=== PATIENT | female | born 1935 | race Asian ===

== ENCOUNTER 2018-03-09 21:54 | Inpatient (IN) | payer MEDICARE, OTHER ==
[~2018-03-09] VITALS: Ht 165.1 cm; Wt 55.4 kg
[~2018-03-09 21:54] MED LIST: ADV250 IH; ALBU6.7H IH; ALBU8.5H3 IH; ASPI-556 PO; DONE5TAB5 PO; FENO48TA15 PO; FEXO180T PO; FISH1CAP49 PO; MOME17N NASAL; TOLT2CAP27 PO
[2018-03-09] MEDS ORDERED: THIA100T13 PO (22:33)
[2018-03-09] MEDS ORDERED: SODIUM CHLORIDE NG (22:33)
[2018-03-09] MEDS ORDERED: CALC-20 GT (22:33)
[2018-03-09] MEDS ORDERED: CETI-290 PO (22:33)
[2018-03-09] MEDS ORDERED: DONE10TA8 GT (22:33)
[2018-03-09] MEDS ORDERED: [UNRECOGNIZED DRUG - CODE] NG (22:33)
[2018-03-09] MEDS ORDERED: LEVO500 GT (22:33)
[2018-03-09] MEDS ORDERED: [UNRECOGNIZED DRUG - CODE] GT (22:33)
[2018-03-09 23:08] LABS: GLUCOSE,POINT OF CARE 124 MG/DL (70-110)
[2018-03-09] MEDS ORDERED: LORazepam 2 MG/ML VIAL IM ONE ×2 (23:15)
[2018-03-10 00:03] LABS: BASOPHILS % (AUTO) 0.9 % (0.0-2.0); EOSINOPHILS % (AUTO) 1.3 % (1.0-6.0); HEMATOCRIT 28.8 % (36-46); HEMOGLOBIN 9.7 g/dL (12.0-16.0); LYMPHOCYTES # (AUTO) 2.8 K/uL (1.0-4.8); MEAN CORPUSCULAR HEMOGLOBIN 32.8 pg (26.0-34.0); MEAN CORPUSCULAR HGB CONC 33.7 G/dL (31.0-37.0); MEAN CORPUSCULAR VOLUME 97 fL (80-100); MONOCYTES # (AUTO) 0.4 K/uL (0.1-1.0); MONOCYTES % (AUTO) 4.8 % (2.0-9.0); NEUTROPHILS # (AUTO) 5.3 K/uL (1.8-7.7); RED BLOOD CELL COUNT(AUTO) 2.97 MIL/uL (4.00-5.20); RED CELL DISTRIBUTION WIDTH 15.3 % (11.5-14.5)
[2018-03-10 00:18] LABS: ALBUMIN 2.5 g/dL (3.4-5.0); BILIRUBIN,TOTAL 0.5 mg/dL (0.1-1.0); CALCIUM, TOTAL 8.7 mg/dL (8.8-10.5); CREATININE 1.13 mg/dL (0.60-1.30); POTASSIUM 4.9 mmol/L (3.5-5.1); TOTAL PROTEIN, SERUM 7.6 g/dL (6.4-8.2)
[2018-03-10 00:46] LABS: PLATELET MORPHOLOGY COMMENT GIANT PLTS PRESENT
[2018-03-10 00:47] LABS: PLATELET COUNT (AUTO) 83 K/uL (150-450)
[2018-03-10] MEDS ORDERED: SODIUM CHLORIDE 3% 500 ML IV ONE (01:45)
[2018-03-10] MEDS ORDERED: LevETIRAcetam 1,000 MG in DEXTROSE 5%-WATER 100 ML IV ONE (02:30)
[2018-03-10] MEDS ORDERED: ONDANSETRON HCL 4 MG/2 ML VIAL IVP PRN ×2 (02:45→10:00)
[2018-03-10] MEDS ORDERED: 0.9% SODIUM CHLORIDE 10 ML SYRINGE IVP PRN ×2 (02:45→10:00)
[2018-03-10] MEDS ORDERED: ACETAMINOPHEN 325 MG TABLET PO PRN (02:45)
[2018-03-10 04:17] LABS: APPEARANCE,URINE CLEAR (CLEAR); BILIRUBIN,URINE NEGATIVE (NEGATIVE); GLUCOSE, URINE (UA) NEGATIVE (NEGATIVE); KETONES,URINE NEGATIVE (NEGATIVE); LEUKOCYTE ESTERASE ,URINE NEGATIVE (NEGATIVE); NITRATE,URINE NEGATIVE (NEGATIVE); OCCULT BLOOD,URINE NEGATIVE (NEGATIVE); PH,URINE 6.5 (5.0-8.0); PROTEIN,URINE TRACE (NEGATIVE); UROBILINOGEN,URINE 0.2 mg/dL (<=1.0)
[2018-03-10 04:23] LABS: BACTERIA,URINE Rare /HPF (None Seen); RBC,URINE 0-2 /HPF (0-2)
[2018-03-10 04:24] LABS: SQUAMOUS EPITHELIAL CELL,UR Rare /LPF (None Seen)
[2018-03-10] MEDS ORDERED: SODIUM CHLORIDE 0.9% 1,000 ML IV ONE (04:45)
[2018-03-10] MEDS ORDERED: SODIUM CHLORIDE 0.9% IRRIG BTL 1,000 ML IRRIG ONE (09:03)
[2018-03-10 09:26] VITALS: BP 103/70
[2018-03-10] MEDS ORDERED: ALBUTEROL SULFATE 2.5 MG/0.5 ML NEB SOLUTION NEB ONE (09:30)
[2018-03-10] MEDS ORDERED: IPRATROPIUM BROMIDE 0.5 MG/2.5 ML NEB SOLUTION NEB ONE (09:30)
[2018-03-10] MEDS ORDERED: ALBUTEROL SULFATE 2.5 MG/0.5 ML NEB SOLUTION NEB PRN ×2 (09:45→10:00)
[2018-03-10] MEDS ORDERED: IPRATROPIUM BROMIDE 0.5 MG/2.5 ML NEB SOLUTION NEB PRN ×2 (09:45→10:00)
[2018-03-10] MEDS: OXYGEN THERAPY IH SCH (09:49)
[2018-03-10] MEDS ORDERED: ZOLPIDEM TARTRATE 5 MG TABLET PO PRN (10:00)
[2018-03-10] MEDS ORDERED: IPRATROPIUM BROMIDE 0.5 MG/2.5 ML NEB SOLUTION NEB SCH (10:00)
[2018-03-10] MEDS ORDERED: ALBUTEROL SULFATE 2.5 MG/0.5 ML NEB SOLUTION NEB SCH (10:00)
[2018-03-10 11:20] VITALS: BP 96/57
[2018-03-10] MEDS: PANTOPRAZOLE SODIUM 40 MG/VIAL IVP SCH (11:30)
[2018-03-10] MEDS: DONEPEZIL HCL 10 MG TABLET GT SCH (11:30)
[2018-03-10] MEDS: THIAMINE HCL 100 MG TABLET PO SCH (11:31)
[2018-03-10] MEDS: HEPARIN SODIUM,PORCINE 5,000 UNITS/ML VIAL SQ SCH ×2 (11:31→15:43)
[2018-03-10] MEDS: LevETIRAcetam 100 MG/ML 5 ML SOLUTION UDCUP PEG SCH ×2 (11:31→21:06)
[2018-03-10] MEDS: IPRATROPIUM BROMIDE 0.5 MG/2.5 ML NEB SOLUTION NEB SCH ×4 (11:44→22:41)
[2018-03-10] MEDS: ALBUTEROL SULFATE 2.5 MG/0.5 ML NEB SOLUTION NEB SCH ×4 (11:45→22:42)
[2018-03-10 15:22] VITALS: BP 133/85
[2018-03-10 19:59] VITALS: BP 102/64
[2018-03-10 23:43] VITALS: BP 116/65
[2018-03-11] MEDS: HEPARIN SODIUM,PORCINE 5,000 UNITS/ML VIAL SQ SCH ×2 (00:31→08:00)
[2018-03-11] MEDS: IPRATROPIUM BROMIDE 0.5 MG/2.5 ML NEB SOLUTION NEB SCH ×6 (03:01→22:31)
[2018-03-11] MEDS: ALBUTEROL SULFATE 2.5 MG/0.5 ML NEB SOLUTION NEB SCH ×6 (03:02→22:31)
[2018-03-11 04:17] VITALS: BP 111/62
[2018-03-11 07:00] LABS: BASOPHILS % (AUTO) 0.5 % (0.0-2.0); EOSINOPHILS % (AUTO) 0.7 % (1.0-6.0); HEMATOCRIT 29.6 % (36-46); HEMOGLOBIN 9.9 g/dL (12.0-16.0); LYMPHOCYTES # (AUTO) 1.4 K/uL (1.0-4.8); LYMPHOCYTES % (AUTO) 24.2 % (22.0-44.0); MEAN CORPUSCULAR HGB CONC 33.5 G/dL (31.0-37.0); MEAN CORPUSCULAR VOLUME 98 fL (80-100); MONOCYTES # (AUTO) 0.3 K/uL (0.1-1.0); MONOCYTES % (AUTO) 4.8 % (2.0-9.0); NEUTROPHILS # (AUTO) 4.2 K/uL (1.8-7.7); NEUTROPHILS % (AUTO) 69.8 % (40.0-70.0); PLATELET COUNT (AUTO) 64 K/uL (150-450); RED BLOOD CELL COUNT(AUTO) 3.01 MIL/uL (4.00-5.20); RED CELL DISTRIBUTION WIDTH 15.2 % (11.5-14.5)
[2018-03-11 07:20] LABS: ANION GAP 8 mmol/L (8-16); CARBON DIOXIDE 24 mmol/L (22-29); CHLORIDE 95 mmol/L (98-107); CREATININE 0.86 mg/dL (0.60-1.30); GLUCOSE,RANDOM 130 mg/dL (70-110); POTASSIUM 4.9 mmol/L (3.5-5.1); SODIUM SERUM 127 mmol/L (136-145); UREA NITROGEN, BLOOD 21 mg/dL (7-18)
[2018-03-11 07:22] VITALS: BP 95/55
[2018-03-11 07:22] LABS: GLOMERULAR FILTR. RATE CALC > 60 mL/min (>60)
[2018-03-11] MEDS: OXYGEN THERAPY IH SCH ×2 (08:12→21:07)
[2018-03-11] MEDS: LevETIRAcetam 100 MG/ML 5 ML SOLUTION UDCUP PEG SCH ×2 (08:12→21:07)
[2018-03-11] MEDS: THIAMINE HCL 100 MG TABLET PO SCH (08:13)
[2018-03-11] MEDS: CALCIUM CIT/VITAMIN D3 200 MG-250 UNITS TABLET GT SCH (08:14)
[2018-03-11] MEDS: DONEPEZIL HCL 10 MG TABLET GT SCH (08:14)
[2018-03-11] MEDS: PANTOPRAZOLE SODIUM 40 MG/VIAL IVP SCH (08:15)
[2018-03-11] MEDS: LEVOFLOXACIN 500 MG TABLET PO SCH (10:43)
[2018-03-11 11:06] VITALS: BP 109/57
[2018-03-11 15:54] VITALS: BP 118/74
[2018-03-11 19:15] VITALS: BP 104/64
[2018-03-11 23:57] VITALS: BP 119/61
[2018-03-12] MEDS: ALBUTEROL SULFATE 2.5 MG/0.5 ML NEB SOLUTION NEB SCH ×6 (03:13→22:56)
[2018-03-12] MEDS: IPRATROPIUM BROMIDE 0.5 MG/2.5 ML NEB SOLUTION NEB SCH ×6 (03:13→22:56)
[2018-03-12 04:03] VITALS: BP 114/60
[2018-03-12 07:19] VITALS: BP 108/60
[2018-03-12] MEDS: CALCIUM CIT/VITAMIN D3 200 MG-250 UNITS TABLET GT SCH (09:00)
[2018-03-12] MEDS: THIAMINE HCL 100 MG TABLET PO SCH (09:05)
[2018-03-12] MEDS: PANTOPRAZOLE SODIUM 40 MG/VIAL IVP SCH (09:05)
[2018-03-12] MEDS: LevETIRAcetam 100 MG/ML 5 ML SOLUTION UDCUP PEG SCH ×2 (09:06→21:28)
[2018-03-12] MEDS: LEVOFLOXACIN 500 MG TABLET PO SCH (09:06)
[2018-03-12] MEDS: DONEPEZIL HCL 10 MG TABLET GT SCH (09:07)
[2018-03-12 10:48] VITALS: BP 110/60
[2018-03-12 15:25] VITALS: BP 110/71
[2018-03-12] MEDS: ACETAMINOPHEN 325 MG TABLET PO PRN (17:27)
[2018-03-12 19:37] VITALS: BP 126/93
[2018-03-12] MEDS: OXYGEN THERAPY IH SCH (22:57)
[2018-03-12 23:30] VITALS: BP 122/72
[2018-03-13] MEDS: IPRATROPIUM BROMIDE 0.5 MG/2.5 ML NEB SOLUTION NEB SCH ×7 (02:05→22:46)
[2018-03-13] MEDS: ALBUTEROL SULFATE 2.5 MG/0.5 ML NEB SOLUTION NEB SCH ×7 (02:05→22:46)
[2018-03-13 05:06] VITALS: BP 128/67
[2018-03-13 06:19] LABS: BASOPHILS % (AUTO) 1.2 % (0.0-2.0); EOSINOPHILS % (AUTO) 0.2 % (1.0-6.0); HEMATOCRIT 26.4 % (36-46); LYMPHOCYTES # (AUTO) 0.7 K/uL (1.0-4.8); LYMPHOCYTES % (AUTO) 8.9 % (22.0-44.0); MEAN CORPUSCULAR HEMOGLOBIN 33.3 pg (26.0-34.0); MEAN CORPUSCULAR HGB CONC 34.1 G/dL (31.0-37.0); MEAN CORPUSCULAR VOLUME 98 fL (80-100); MONOCYTES # (AUTO) 0.4 K/uL (0.1-1.0); MONOCYTES % (AUTO) 4.3 % (2.0-9.0); NEUTROPHILS # (AUTO) 7.2 K/uL (1.8-7.7); PLATELET COUNT (AUTO) 196 K/uL (150-450); RED CELL DISTRIBUTION WIDTH 15.4 % (11.5-14.5)
[2018-03-13 06:33] LABS: CALCIUM, TOTAL 9.3 mg/dL (8.8-10.5); MAGNESIUM 3.6 mg/dL (1.80-2.40); POTASSIUM 5.1 mmol/L (3.5-5.1)
[2018-03-13 06:59] LABS: NEUTROPHILS % (AUTO) 85.4 % (40.0-70.0)
[2018-03-13] MEDS: OXYGEN THERAPY IH SCH ×2 (07:48→21:34)
[2018-03-13 07:54] VITALS: BP 132/74
[2018-03-13] MEDS: ACETAMINOPHEN 325 MG TABLET PO PRN ×2 (07:56→21:33)
[2018-03-13] MEDS: LEVOFLOXACIN 500 MG TABLET PO SCH (07:57)
[2018-03-13] MEDS: PANTOPRAZOLE SODIUM 40 MG/VIAL IVP SCH (07:57)
[2018-03-13] MEDS: THIAMINE HCL 100 MG TABLET PO SCH (07:57)
[2018-03-13] MEDS: DONEPEZIL HCL 10 MG TABLET GT SCH (07:57)
[2018-03-13] MEDS: LevETIRAcetam 100 MG/ML 5 ML SOLUTION UDCUP PEG SCH ×2 (07:58→21:34)
[2018-03-13] MEDS: CALCIUM CIT/VITAMIN D3 200 MG-250 UNITS TABLET GT SCH (09:00)
[2018-03-13 09:49] LABS: APPEARANCE,URINE CLOUDY (CLEAR); BILIRUBIN,URINE NEGATIVE (NEGATIVE); GLUCOSE, URINE (UA) NEGATIVE (NEGATIVE); KETONES,URINE NEGATIVE (NEGATIVE); LEUKOCYTE ESTERASE ,URINE LARGE (NEGATIVE); NITRATE,URINE NEGATIVE (NEGATIVE); OCCULT BLOOD,URINE SMALL (NEGATIVE); PH,URINE 6.5 (5.0-8.0); PROTEIN,URINE SEE CONFIRM (NEGATIVE); UROBILINOGEN,URINE 0.2 mg/dL (<=1.0)
[2018-03-13 10:01] LABS: SULFOSALICYLIC ACID,URINE Trace (Negative)
[2018-03-13 10:02] LABS: BACTERIA,URINE Few /HPF (None Seen); WBC,URINE 51-100 /HPF (0-5); YEAST,URINE Many /HPF (None Seen)
[2018-03-13 10:03] LABS: SQUAMOUS EPITHELIAL CELL,UR Moderate /LPF (None Seen)
[2018-03-13 12:18] VITALS: BP 96/59
[2018-03-13 15:17] VITALS: BP 102/67
[2018-03-13 16:08] LABS: PHOSPHORUS 3.7 mg/dL (2.5-4.9)
[2018-03-13 20:13] VITALS: BP 113/64
[2018-03-13] MEDS: MUPIROCIN CALCIUM 2% 22 GM OINTMENT NASAL SCH (21:34)
[2018-03-13 23:58] VITALS: BP 101/54
[2018-03-14] MEDS: ALBUTEROL SULFATE 2.5 MG/0.5 ML NEB SOLUTION NEB SCH ×6 (03:19→22:31)
[2018-03-14] MEDS: IPRATROPIUM BROMIDE 0.5 MG/2.5 ML NEB SOLUTION NEB SCH ×6 (03:19→22:31)
[2018-03-14 04:09] VITALS: BP 107/67
[2018-03-14] MEDS: ACETAMINOPHEN 325 MG TABLET PO PRN ×2 (04:15→15:55)
[2018-03-14 06:18] LABS: CALCIUM, TOTAL 9.1 mg/dL (8.8-10.5); CREATININE 1.03 mg/dL (0.60-1.30); POTASSIUM 4.4 mmol/L (3.5-5.1)
[2018-03-14 06:20] LABS: BASOPHILS % (AUTO) 0.2 % (0.0-2.0); EOSINOPHILS % (AUTO) 0.2 % (1.0-6.0); HEMATOCRIT 24.1 % (36-46); HEMOGLOBIN 8.3 g/dL (12.0-16.0); LYMPHOCYTES # (AUTO) 0.9 K/uL (1.0-4.8); LYMPHOCYTES % (AUTO) 11.3 % (22.0-44.0); MEAN CORPUSCULAR HEMOGLOBIN 33.9 pg (26.0-34.0); MEAN CORPUSCULAR HGB CONC 34.7 G/dL (31.0-37.0); MEAN CORPUSCULAR VOLUME 98 fL (80-100); MONOCYTES # (AUTO) 0.3 K/uL (0.1-1.0); MONOCYTES % (AUTO) 3.9 % (2.0-9.0); NEUTROPHILS # (AUTO) 6.5 K/uL (1.8-7.7); NEUTROPHILS % (AUTO) 84.4 % (40.0-70.0); PLATELET COUNT (AUTO) 189 K/uL (150-450); RED BLOOD CELL COUNT(AUTO) 2.46 MIL/uL (4.00-5.20); RED CELL DISTRIBUTION WIDTH 15.1 % (11.5-14.5)
[2018-03-14] MEDS: OXYGEN THERAPY IH SCH ×2 (07:20→20:31)
[2018-03-14 07:31] VITALS: BP 91/59
[2018-03-14 08:12] LABS: MAGNESIUM 2.3 mg/dL (1.80-2.40); PHOSPHORUS 3.3 mg/dL (2.5-4.9)
[2018-03-14] MEDS: CALCIUM CIT/VITAMIN D3 200 MG-250 UNITS TABLET GT SCH (08:49)
[2018-03-14] MEDS: MUPIROCIN CALCIUM 2% 22 GM OINTMENT NASAL SCH ×2 (08:49→20:31)
[2018-03-14] MEDS: PANTOPRAZOLE SODIUM 40 MG/VIAL IVP SCH (08:50)
[2018-03-14] MEDS: DONEPEZIL HCL 10 MG TABLET GT SCH (08:50)
[2018-03-14] MEDS: THIAMINE HCL 100 MG TABLET PO SCH (08:50)
[2018-03-14] MEDS: LevETIRAcetam 100 MG/ML 5 ML SOLUTION UDCUP PEG SCH ×2 (08:51→20:31)
[2018-03-14 11:07] VITALS: BP 98/66
[2018-03-14] MEDS: LEVOFLOXACIN 500 MG TABLET PO SCH ×2 (12:28→15:55)
[2018-03-14] MEDS ORDERED: ValACYclovir HCL 500 MG TABLET PO SCH (13:30)
[2018-03-14 15:38] VITALS: BP 101/64
[2018-03-14 19:44] VITALS: BP 100/50
[2018-03-14 23:42] VITALS: BP 114/66
[2018-03-15] MEDS: IPRATROPIUM BROMIDE 0.5 MG/2.5 ML NEB SOLUTION NEB SCH ×6 (03:06→23:15)
[2018-03-15] MEDS: ALBUTEROL SULFATE 2.5 MG/0.5 ML NEB SOLUTION NEB SCH ×6 (03:06→23:15)
[2018-03-15 05:56] VITALS: BP 116/66
[2018-03-15] MEDS: OXYGEN THERAPY IH SCH ×2 (07:11→18:50)
[2018-03-15 07:43] VITALS: BP 140/77
[2018-03-15] MEDS ORDERED: ZOLPIDEM TARTRATE 5 MG TABLET NG PRN (08:00)
[2018-03-15] MEDS: LevETIRAcetam 100 MG/ML 5 ML SOLUTION UDCUP NG SCH ×2 (08:55→21:22)
[2018-03-15] MEDS: LEVOFLOXACIN 500 MG TABLET NG SCH (08:55)
[2018-03-15] MEDS: THIAMINE HCL 100 MG TABLET NG SCH (08:56)
[2018-03-15] MEDS: PANTOPRAZOLE SODIUM 40 MG/VIAL IVP SCH (08:56)
[2018-03-15] MEDS: DONEPEZIL HCL 10 MG TABLET NG SCH (08:56)
[2018-03-15] MEDS: CALCIUM CIT/VITAMIN D3 200 MG-250 UNITS TABLET NG SCH (08:56)
[2018-03-15] MEDS: ValACYclovir HCL 500 MG TABLET NG SCH (08:56)
[2018-03-15] MEDS: MUPIROCIN CALCIUM 2% 22 GM OINTMENT NASAL SCH ×2 (08:57→21:22)
[2018-03-15] MEDS: ACETAMINOPHEN 325 MG TABLET NG PRN ×2 (09:25→21:22)
[2018-03-15 11:52] VITALS: BP 98/55
[2018-03-15 15:04] VITALS: BP 125/74
[2018-03-15 20:14] VITALS: BP 122/64
[2018-03-16] VITALS (7 sets, daily range): BP systolic 105–125; BP diastolic 56–72
[2018-03-16] MEDS: IPRATROPIUM BROMIDE 0.5 MG/2.5 ML NEB SOLUTION NEB SCH ×6 (03:10→23:17)
[2018-03-16] MEDS: ALBUTEROL SULFATE 2.5 MG/0.5 ML NEB SOLUTION NEB SCH ×6 (03:10→23:17)
[2018-03-16] MEDS: PANTOPRAZOLE SODIUM 40 MG/VIAL IVP SCH (09:00)
[2018-03-16] MEDS: LevETIRAcetam 100 MG/ML 5 ML SOLUTION UDCUP NG SCH ×2 (09:24→20:53)
[2018-03-16] MEDS: CALCIUM CIT/VITAMIN D3 200 MG-250 UNITS TABLET NG SCH (09:24)
[2018-03-16] MEDS: DONEPEZIL HCL 10 MG TABLET NG SCH (09:24)
[2018-03-16] MEDS: THIAMINE HCL 100 MG TABLET NG SCH (09:25)
[2018-03-16] MEDS: ValACYclovir HCL 500 MG TABLET NG SCH (09:25)
[2018-03-16] MEDS: LEVOFLOXACIN 500 MG TABLET NG SCH (09:25)
[2018-03-16] MEDS: MUPIROCIN CALCIUM 2% 22 GM OINTMENT NASAL SCH ×2 (09:25→20:54)
[2018-03-16] MEDS: OXYGEN THERAPY IH SCH ×2 (09:34→20:53)
[2018-03-16] MEDS: ACETAMINOPHEN 325 MG TABLET NG PRN (16:09)
[2018-03-17] MEDS: ALBUTEROL SULFATE 2.5 MG/0.5 ML NEB SOLUTION NEB SCH ×6 (02:28→23:03)
[2018-03-17] MEDS: IPRATROPIUM BROMIDE 0.5 MG/2.5 ML NEB SOLUTION NEB SCH ×6 (02:28→23:03)
[2018-03-17 04:47] VITALS: BP 105/63
[2018-03-17 07:16] LABS: BASOPHILS % (AUTO) 0.1 % (0.0-2.0); EOSINOPHILS % (AUTO) 2.1 % (1.0-6.0); HEMATOCRIT 23.6 % (36-46); LYMPHOCYTES # (AUTO) 1.1 K/uL (1.0-4.8); LYMPHOCYTES % (AUTO) 22.5 % (22.0-44.0); MEAN CORPUSCULAR HEMOGLOBIN 33.2 pg (26.0-34.0); MEAN CORPUSCULAR HGB CONC 33.8 G/dL (31.0-37.0); MEAN CORPUSCULAR VOLUME 98 fL (80-100); MONOCYTES # (AUTO) 0.4 K/uL (0.1-1.0); MONOCYTES % (AUTO) 8.9 % (2.0-9.0); NEUTROPHILS # (AUTO) 3.3 K/uL (1.8-7.7); NEUTROPHILS % (AUTO) 66.4 % (40.0-70.0); PLATELET COUNT (AUTO) 183 K/uL (150-450); RED BLOOD CELL COUNT(AUTO) 2.41 MIL/uL (4.00-5.20)
[2018-03-17 07:27] LABS: ANION GAP 4 mmol/L (8-16); CALCIUM, TOTAL 9.3 mg/dL (8.8-10.5); CARBON DIOXIDE 32 mmol/L (22-29); CHLORIDE 97 mmol/L (98-107); CREATININE 0.85 mg/dL (0.60-1.30); GLUCOSE,RANDOM 149 mg/dL (70-110); POTASSIUM 5.5 mmol/L (3.5-5.1); SODIUM SERUM 133 mmol/L (136-145); UREA NITROGEN, BLOOD 31 mg/dL (7-18)
[2018-03-17 07:28] LABS: GLOMERULAR FILTR. RATE CALC > 60 mL/min (>60)
[2018-03-17 07:34] VITALS: BP 125/74
[2018-03-17] MEDS: CALCIUM CIT/VITAMIN D3 200 MG-250 UNITS TABLET NG SCH (09:09)
[2018-03-17] MEDS: THIAMINE HCL 100 MG TABLET NG SCH (09:09)
[2018-03-17] MEDS: OXYGEN THERAPY IH SCH ×2 (09:09→20:49)
[2018-03-17] MEDS: LEVOFLOXACIN 500 MG TABLET NG SCH (09:09)
[2018-03-17] MEDS: DONEPEZIL HCL 10 MG TABLET NG SCH (09:09)
[2018-03-17] MEDS: MUPIROCIN CALCIUM 2% 22 GM OINTMENT NASAL SCH ×2 (09:10→20:50)
[2018-03-17] MEDS: LevETIRAcetam 100 MG/ML 5 ML SOLUTION UDCUP NG SCH ×2 (09:10→20:52)
[2018-03-17] MEDS: PANTOPRAZOLE SODIUM 40 MG/VIAL IVP SCH (09:10)
[2018-03-17] MEDS: ValACYclovir HCL 500 MG TABLET NG SCH (09:10)
[2018-03-17 11:20] VITALS: BP 109/62
[2018-03-17 11:41] LABS: HEMOGLOBIN A1C 6.2 % (4.5-6.2)
[2018-03-17 15:27] VITALS: BP 138/68
[2018-03-17 18:58] LABS: ABG BASE EXCESS 5.1 mmol/L (-2.0-3.0); ABG CARBOXYHEMOGLOBIN 0.8 % (0.0-1.5); ABG HCO3 28.6 mmol/L (22.0-26.0); ABG METHEMOGLOBIN 0.1 % (0.0-1.5); ABG OXYGEN CONTENT 14.8 mL/dL (15.0-23.0); ABG OXYGEN SATURATION 96.7 % (95.0-98.0); ABG OXYHEMOGLOBIN 95.8 % (94.0-100.0); ABG PCO2 43 mmHg (35-45); ABG PH 7.447 (7.35-7.450); ABG TOTAL HEMOGLOBIN 10.9 G/dL (12.0-18.0); PO2, ARTERIAL BG 83.7 mmHg (71.0-79.0); SOURCE, BLOOD GAS ARTERIAL; TEMPERATURE, FAHRENHEIT, BG 98.6 FAHREN (96.0-98.6)
[2018-03-17 18:59] LABS: O2 DEVICE,BLOOD GAS CANNULA (ROOM AIR); SITE, BLOOD GAS RT BRACHIAL
[2018-03-17 20:07] VITALS: BP 109/56
[2018-03-17 23:52] VITALS: BP 109/64
[2018-03-18] MEDS: IPRATROPIUM BROMIDE 0.5 MG/2.5 ML NEB SOLUTION NEB SCH ×6 (02:57→22:47)
[2018-03-18] MEDS: ALBUTEROL SULFATE 2.5 MG/0.5 ML NEB SOLUTION NEB SCH ×6 (02:57→22:47)
[2018-03-18 04:48] VITALS: BP 110/60
[2018-03-18 06:01] LABS: BASOPHILS % (AUTO) 0.1 % (0.0-2.0); EOSINOPHILS % (AUTO) 2.3 % (1.0-6.0); HEMATOCRIT 23.9 % (36-46); HEMOGLOBIN 8.2 g/dL (12.0-16.0); LYMPHOCYTES # (AUTO) 1.3 K/uL (1.0-4.8); LYMPHOCYTES % (AUTO) 23.6 % (22.0-44.0); MEAN CORPUSCULAR HEMOGLOBIN 33.6 pg (26.0-34.0); MEAN CORPUSCULAR HGB CONC 34.1 G/dL (31.0-37.0); MEAN CORPUSCULAR VOLUME 98 fL (80-100); MONOCYTES # (AUTO) 0.4 K/uL (0.1-1.0); MONOCYTES % (AUTO) 7.7 % (2.0-9.0); NEUTROPHILS # (AUTO) 3.7 K/uL (1.8-7.7); NEUTROPHILS % (AUTO) 66.3 % (40.0-70.0); PLATELET COUNT (AUTO) 188 K/uL (150-450); RED BLOOD CELL COUNT(AUTO) 2.43 MIL/uL (4.00-5.20)
[2018-03-18 06:18] LABS: ANION GAP 5 mmol/L (8-16); CALCIUM, TOTAL 9.1 mg/dL (8.8-10.5); CARBON DIOXIDE 30 mmol/L (22-29); CHLORIDE 99 mmol/L (98-107); CREATININE 0.76 mg/dL (0.60-1.30); GLUCOSE,RANDOM 153 mg/dL (70-110); POTASSIUM 4.8 mmol/L (3.5-5.1); SODIUM SERUM 134 mmol/L (136-145); UREA NITROGEN, BLOOD 29 mg/dL (7-18)
[2018-03-18 06:19] LABS: GLOMERULAR FILTR. RATE CALC > 60 mL/min (>60)
[2018-03-18 07:40] VITALS: BP 115/72
[2018-03-18] MEDS: OXYGEN THERAPY IH SCH ×2 (07:56→21:01)
[2018-03-18] MEDS: PANTOPRAZOLE SODIUM 40 MG/VIAL IVP SCH (08:51)
[2018-03-18] MEDS: CALCIUM CIT/VITAMIN D3 200 MG-250 UNITS TABLET NG SCH (08:51)
[2018-03-18] MEDS: LevETIRAcetam 100 MG/ML 5 ML SOLUTION UDCUP NG SCH ×2 (08:51→21:03)
[2018-03-18] MEDS: DONEPEZIL HCL 10 MG TABLET NG SCH (08:51)
[2018-03-18] MEDS: THIAMINE HCL 100 MG TABLET NG SCH (08:51)
[2018-03-18] MEDS: LEVOFLOXACIN 500 MG TABLET NG SCH (08:51)
[2018-03-18] MEDS: ValACYclovir HCL 500 MG TABLET NG SCH (08:51)
[2018-03-18] MEDS: MUPIROCIN CALCIUM 2% 22 GM OINTMENT NASAL SCH ×2 (08:53→21:02)
[2018-03-18 11:46] VITALS: BP 105/65
[2018-03-18] MEDS ORDERED: NACL1 NG (12:56)
[2018-03-18] MEDS: ACETYLCYSTEINE 10% 100 MG/ML 4 ML NEB SOLUTION NEB SCH ×3 (13:00→19:21)
[2018-03-18 17:17] VITALS: BP 99/62
[2018-03-18 20:10] VITALS: BP 104/61
[2018-03-18 21:08] LABS: C.DIFF GDH ANTIGEN, Stool Negative (Negative)
[2018-03-18 21:09] LABS: C.DIFF TOXINS A&B, Stool Negative (Negative)
[2018-03-18 23:32] VITALS: BP 125/73
[2018-03-19] MEDS: IPRATROPIUM BROMIDE 0.5 MG/2.5 ML NEB SOLUTION NEB SCH ×6 (02:42→22:47)
[2018-03-19] MEDS: ALBUTEROL SULFATE 2.5 MG/0.5 ML NEB SOLUTION NEB SCH ×6 (02:42→22:47)
[2018-03-19 04:30] VITALS: BP 105/62
[2018-03-19] MEDS: ACETYLCYSTEINE 10% 100 MG/ML 4 ML NEB SOLUTION NEB SCH ×4 (06:59→19:29)
[2018-03-19 07:45] VITALS: BP 103/60
[2018-03-19] MEDS: THIAMINE HCL 100 MG TABLET NG SCH (08:39)
[2018-03-19] MEDS: LEVOFLOXACIN 500 MG TABLET NG SCH (08:39)
[2018-03-19] MEDS: ValACYclovir HCL 500 MG TABLET NG SCH (08:39)
[2018-03-19] MEDS: LevETIRAcetam 100 MG/ML 5 ML SOLUTION UDCUP NG SCH ×2 (08:39→21:18)
[2018-03-19] MEDS: PANTOPRAZOLE SODIUM 40 MG/VIAL IVP SCH (08:39)
[2018-03-19] MEDS: CALCIUM CIT/VITAMIN D3 200 MG-250 UNITS TABLET NG SCH (08:40)
[2018-03-19] MEDS: DONEPEZIL HCL 10 MG TABLET NG SCH (08:40)
[2018-03-19] MEDS: MUPIROCIN CALCIUM 2% 22 GM OINTMENT NASAL SCH ×2 (08:45→21:17)
[2018-03-19] MEDS: OXYGEN THERAPY IH SCH ×2 (08:45→19:30)
[2018-03-19 11:26] VITALS: BP 125/66
[2018-03-19 15:55] VITALS: BP 109/59
[2018-03-19 20:03] VITALS: BP 106/51
[2018-03-19] MEDS: ACETAMINOPHEN 325 MG TABLET NG PRN (21:18)
[2018-03-20] VITALS (7 sets, daily range): BP systolic 98–132; BP diastolic 52–74
[2018-03-20] MEDS: IPRATROPIUM BROMIDE 0.5 MG/2.5 ML NEB SOLUTION NEB SCH ×6 (02:36→22:40)
[2018-03-20] MEDS: ALBUTEROL SULFATE 2.5 MG/0.5 ML NEB SOLUTION NEB SCH ×6 (02:36→22:40)
[2018-03-20] MEDS: OXYGEN THERAPY IH SCH (07:43)
[2018-03-20] MEDS: PANTOPRAZOLE SODIUM 40 MG/VIAL IVP SCH (07:51)
[2018-03-20] MEDS: LevETIRAcetam 100 MG/ML 5 ML SOLUTION UDCUP NG SCH ×2 (07:53→20:23)
[2018-03-20] MEDS: ValACYclovir HCL 500 MG TABLET NG SCH (07:54)
[2018-03-20] MEDS: THIAMINE HCL 100 MG TABLET NG SCH (07:56)
[2018-03-20] MEDS: LEVOFLOXACIN 500 MG TABLET NG SCH (07:57)
[2018-03-20] MEDS: ACETAMINOPHEN 325 MG TABLET NG PRN ×2 (07:57→20:23)
[2018-03-20] MEDS: DONEPEZIL HCL 10 MG TABLET NG SCH (07:57)
[2018-03-20] MEDS: ACETYLCYSTEINE 10% 100 MG/ML 4 ML NEB SOLUTION NEB SCH ×4 (08:10→22:40)
[2018-03-20] MEDS: MUPIROCIN CALCIUM 2% 22 GM OINTMENT NASAL SCH ×2 (09:31→20:23)
[2018-03-20] MEDS: CALCIUM CIT/VITAMIN D3 200 MG-250 UNITS TABLET NG SCH (10:49)
[2018-03-21] MEDS: ALBUTEROL SULFATE 2.5 MG/0.5 ML NEB SOLUTION NEB SCH ×6 (02:55→22:52)
[2018-03-21] MEDS: IPRATROPIUM BROMIDE 0.5 MG/2.5 ML NEB SOLUTION NEB SCH ×6 (02:55→22:52)
[2018-03-21 05:07] VITALS: BP 96/76
[2018-03-21 05:45] LABS: BASOPHILS % (AUTO) 0.3 % (0.0-2.0); EOSINOPHILS % (AUTO) 2.3 % (1.0-6.0); HEMATOCRIT 22.5 % (36-46); HEMOGLOBIN 7.6 g/dL (12.0-16.0); LYMPHOCYTES # (AUTO) 1.6 K/uL (1.0-4.8); LYMPHOCYTES % (AUTO) 20.7 % (22.0-44.0); MEAN CORPUSCULAR HGB CONC 33.6 G/dL (31.0-37.0); MEAN CORPUSCULAR VOLUME 98 fL (80-100); MONOCYTES # (AUTO) 0.3 K/uL (0.1-1.0); MONOCYTES % (AUTO) 4.3 % (2.0-9.0); NEUTROPHILS # (AUTO) 5.6 K/uL (1.8-7.7); NEUTROPHILS % (AUTO) 72.4 % (40.0-70.0); PLATELET COUNT (AUTO) 164 K/uL (150-450); RED BLOOD CELL COUNT(AUTO) 2.29 MIL/uL (4.00-5.20); RED CELL DISTRIBUTION WIDTH 15.1 % (11.5-14.5)
[2018-03-21 06:03] LABS: ANION GAP 6 mmol/L (8-16); CARBON DIOXIDE 30 mmol/L (22-29); CHLORIDE 100 mmol/L (98-107); CREATININE 0.86 mg/dL (0.60-1.30); GLUCOSE,RANDOM 130 mg/dL (70-110); POTASSIUM 4.6 mmol/L (3.5-5.1); SODIUM SERUM 136 mmol/L (136-145); UREA NITROGEN, BLOOD 32 mg/dL (7-18)
[2018-03-21 06:05] LABS: GLOMERULAR FILTR. RATE CALC > 60 mL/min (>60)
[2018-03-21 07:31] VITALS: BP 119/70
[2018-03-21] MEDS: ACETYLCYSTEINE 10% 100 MG/ML 4 ML NEB SOLUTION NEB SCH ×4 (08:44→22:53)
[2018-03-21 09:20] LABS: PROTHROMBIN TIME 10.4 SEC (9.4-11.6)
[2018-03-21] MEDS: PANTOPRAZOLE SODIUM 40 MG/VIAL IVP SCH (10:07)
[2018-03-21] MEDS: THIAMINE HCL 100 MG TABLET NG SCH (10:08)
[2018-03-21] MEDS: LevETIRAcetam 100 MG/ML 5 ML SOLUTION UDCUP NG SCH ×2 (10:08→20:18)
[2018-03-21] MEDS: LEVOFLOXACIN 500 MG TABLET NG SCH (10:08)
[2018-03-21] MEDS: ValACYclovir HCL 500 MG TABLET NG SCH (10:08)
[2018-03-21] MEDS: MUPIROCIN CALCIUM 2% 22 GM OINTMENT NASAL SCH ×2 (10:10→20:23)
[2018-03-21] MEDS: DONEPEZIL HCL 10 MG TABLET NG SCH (10:10)
[2018-03-21 11:45] VITALS: BP 105/67
[2018-03-21] MEDS: CALCIUM CIT/VITAMIN D3 200 MG-250 UNITS TABLET NG SCH (12:35)
[2018-03-21 15:30] VITALS: BP 95/69
[2018-03-21] MEDS ORDERED: SODIUM CHLORIDE 0.9% 1,000 ML IV ONE (16:14)
[2018-03-21 20:14] VITALS: BP 102/64
[2018-03-22] VITALS (7 sets, daily range): BP systolic 88–122; BP diastolic 47–60
[2018-03-22] MEDS ORDERED: SODIUM CHLORIDE 0.9% 1,000 ML IV ONE ×3 (00:01→11:35)
[2018-03-22] MEDS: ALBUTEROL SULFATE 2.5 MG/0.5 ML NEB SOLUTION NEB SCH ×6 (02:31→22:53)
[2018-03-22] MEDS: IPRATROPIUM BROMIDE 0.5 MG/2.5 ML NEB SOLUTION NEB SCH ×6 (02:31→22:53)
[2018-03-22] MEDS: ACETYLCYSTEINE 10% 100 MG/ML 4 ML NEB SOLUTION NEB SCH ×4 (08:08→20:05)
[2018-03-22] MEDS: LevETIRAcetam 100 MG/ML 5 ML SOLUTION UDCUP NG SCH ×2 (08:31→22:23)
[2018-03-22] MEDS: MUPIROCIN CALCIUM 2% 22 GM OINTMENT NASAL SCH ×2 (08:31→22:23)
[2018-03-22] MEDS: CALCIUM CIT/VITAMIN D3 200 MG-250 UNITS TABLET NG SCH (09:00)
[2018-03-22] MEDS: DONEPEZIL HCL 10 MG TABLET NG SCH (09:00)
[2018-03-22] MEDS: THIAMINE HCL 100 MG TABLET NG SCH (09:00)
[2018-03-22] MEDS: LEVOFLOXACIN 500 MG TABLET NG SCH (09:00)
[2018-03-22] MEDS ORDERED: MORPHINE SULFATE 2 MG/ML SYRINGE IVP PRN (13:45)
[2018-03-22] MEDS: ValACYclovir HCL 500 MG TABLET NG SCH (18:51)
[2018-03-22] MEDS: PANTOPRAZOLE SODIUM 40 MG/VIAL IVP SCH (18:52)
[2018-03-23] MEDS: IPRATROPIUM BROMIDE 0.5 MG/2.5 ML NEB SOLUTION NEB SCH ×6 (02:15→23:33)
[2018-03-23] MEDS: ALBUTEROL SULFATE 2.5 MG/0.5 ML NEB SOLUTION NEB SCH ×6 (02:15→23:33)
[2018-03-23] MEDS ORDERED: LIDOCAINE HCL/PF 2% 5 ML VIAL IM ONE (05:07)
[2018-03-23] MEDS ORDERED: PROPOFOL 1% 20 ML VIAL IVP ONE (05:07)
[2018-03-23 05:46] VITALS: BP 100/53
[2018-03-23 06:45] LABS: BASOPHILS % (AUTO) 0.2 % (0.0-2.0); EOSINOPHILS % (AUTO) 2.2 % (1.0-6.0); HEMATOCRIT 21.2 % (36-46); HEMOGLOBIN 7.2 g/dL (12.0-16.0); MEAN CORPUSCULAR HEMOGLOBIN 33.2 pg (26.0-34.0); MEAN CORPUSCULAR HGB CONC 33.8 G/dL (31.0-37.0); MEAN CORPUSCULAR VOLUME 98 fL (80-100); MONOCYTES # (AUTO) 0.3 K/uL (0.1-1.0); MONOCYTES % (AUTO) 5.1 % (2.0-9.0); NEUTROPHILS # (AUTO) 3.6 K/uL (1.8-7.7); NEUTROPHILS % (AUTO) 72.5 % (40.0-70.0); PLATELET COUNT (AUTO) 169 K/uL (150-450); RED BLOOD CELL COUNT(AUTO) 2.16 MIL/uL (4.00-5.20); RED CELL DISTRIBUTION WIDTH 15.5 % (11.5-14.5)
[2018-03-23 06:52] LABS: ANION GAP 8 mmol/L (8-16); CALCIUM, TOTAL 8.8 mg/dL (8.8-10.5); CARBON DIOXIDE 27 mmol/L (22-29); CHLORIDE 102 mmol/L (98-107); CREATININE 0.79 mg/dL (0.60-1.30); GLUCOSE,RANDOM 137 mg/dL (70-110); POTASSIUM 4.6 mmol/L (3.5-5.1); SODIUM SERUM 137 mmol/L (136-145); UREA NITROGEN, BLOOD 28 mg/dL (7-18)
[2018-03-23 06:53] LABS: GLOMERULAR FILTR. RATE CALC > 60 mL/min (>60)
[2018-03-23 07:38] VITALS: BP 93/56
[2018-03-23] MEDS: ACETYLCYSTEINE 10% 100 MG/ML 4 ML NEB SOLUTION NEB SCH ×4 (08:06→20:12)
[2018-03-23] MEDS: MUPIROCIN CALCIUM 2% 22 GM OINTMENT NASAL SCH (09:35)
[2018-03-23] MEDS: PANTOPRAZOLE SODIUM 40 MG/VIAL IVP SCH (09:35)
[2018-03-23] MEDS: DONEPEZIL HCL 10 MG TABLET NG SCH (09:35)
[2018-03-23] MEDS: LevETIRAcetam 100 MG/ML 5 ML SOLUTION UDCUP NG SCH ×2 (09:36→20:33)
[2018-03-23] MEDS: LEVOFLOXACIN 500 MG TABLET NG SCH (09:36)
[2018-03-23] MEDS: CALCIUM CIT/VITAMIN D3 200 MG-250 UNITS TABLET NG SCH (09:36)
[2018-03-23] MEDS: ValACYclovir HCL 500 MG TABLET NG SCH (09:37)
[2018-03-23] MEDS: THIAMINE HCL 100 MG TABLET NG SCH (09:37)
[2018-03-23 11:29] VITALS: BP 99/64
[2018-03-23 15:55] VITALS: BP 105/59
[2018-03-23 20:00] VITALS: BP 113/69
[2018-03-23 23:56] VITALS: BP 119/60
[2018-03-24] MEDS: IPRATROPIUM BROMIDE 0.5 MG/2.5 ML NEB SOLUTION NEB SCH ×4 (03:56→15:33)
[2018-03-24] MEDS: ALBUTEROL SULFATE 2.5 MG/0.5 ML NEB SOLUTION NEB SCH ×4 (03:56→15:34)
[2018-03-24 04:25] VITALS: BP 105/62
[2018-03-24 07:20] LABS: BASOPHILS % (AUTO) 0.3 % (0.0-2.0); EOSINOPHILS % (AUTO) 1.4 % (1.0-6.0); HEMOGLOBIN 7.4 g/dL (12.0-16.0); LYMPHOCYTES % (AUTO) 30.8 % (22.0-44.0); MEAN CORPUSCULAR HGB CONC 33.5 G/dL (31.0-37.0); MEAN CORPUSCULAR VOLUME 99 fL (80-100); MONOCYTES # (AUTO) 0.3 K/uL (0.1-1.0); NEUTROPHILS # (AUTO) 4.1 K/uL (1.8-7.7); NEUTROPHILS % (AUTO) 62.5 % (40.0-70.0); PLATELET COUNT (AUTO) 154 K/uL (150-450); RED BLOOD CELL COUNT(AUTO) 2.23 MIL/uL (4.00-5.20); RED CELL DISTRIBUTION WIDTH 15.7 % (11.5-14.5)
[2018-03-24] MEDS: ACETYLCYSTEINE 10% 100 MG/ML 4 ML NEB SOLUTION NEB SCH ×3 (07:33→15:34)
[2018-03-24 07:34] LABS: ANION GAP 3 mmol/L (8-16); CALCIUM, TOTAL 8.6 mg/dL (8.8-10.5); CARBON DIOXIDE 30 mmol/L (22-29); CHLORIDE 102 mmol/L (98-107); CREATININE 0.78 mg/dL (0.60-1.30); GLUCOSE,RANDOM 154 mg/dL (70-110); POTASSIUM 4.5 mmol/L (3.5-5.1); SODIUM SERUM 135 mmol/L (136-145); UREA NITROGEN, BLOOD 29 mg/dL (7-18)
[2018-03-24 07:43] LABS: GLOMERULAR FILTR. RATE CALC > 60 mL/min (>60)
[2018-03-24] MEDS: LevETIRAcetam 100 MG/ML 5 ML SOLUTION UDCUP NG SCH (07:51)
[2018-03-24] MEDS: PANTOPRAZOLE SODIUM 40 MG/VIAL IVP SCH (07:52)
[2018-03-24] MEDS: THIAMINE HCL 100 MG TABLET NG SCH (07:52)
[2018-03-24] MEDS: DONEPEZIL HCL 10 MG TABLET NG SCH (07:52)
[2018-03-24] MEDS: ValACYclovir HCL 500 MG TABLET NG SCH (07:52)
[2018-03-24] MEDS: CALCIUM CIT/VITAMIN D3 200 MG-250 UNITS TABLET NG SCH (07:52)
[2018-03-24 08:07] VITALS: BP 103/64
[2018-03-24] MEDS: LEVOFLOXACIN 500 MG TABLET NG SCH (11:12)
[2018-03-24 11:22] VITALS: BP 104/65
[2018-03-24 15:54] VITALS: BP 111/64
== END 2018-03-24 18:40 | DRG 393 ==
LOC: EMS 21:54 → 5N 03-10 03:19
PROVIDERS: ADMIT Internal Medicine; ATTEND Internal Medicine
PROC: 05H533Z Insertion of Infusion Device into Right Subclavian Vein, Percutaneous Approach (ICD-10-PCS; 2018-03-17)
PROC: B546ZZA Ultrasonography of Right Subclavian Vein, Guidance (ICD-10-PCS; 2018-03-17)
PROC: 3E0G76Z Introduction of Nutritional Substance into Upper GI, Via Natural or Artificial Opening (ICD-10-PCS; 2018-03-22)
PROC: 0DH63UZ Insertion of Feeding Device into Stomach, Percutaneous Approach (ICD-10-PCS; principal; 2018-03-22 12:15)
DX: Z43.1 Encounter for attention to gastrostomy (principal); J96.20 Acute and chronic respiratory failure, unspecified whether with hypoxia or hypercapnia; J18.9 Pneumonia, unspecified organism; J44.1 Chronic obstructive pulmonary disease with (acute) exacerbation; J44.0 Chronic obstructive pulmonary disease with (acute) lower respiratory infection; K57.92 Diverticulitis of intestine, part unspecified, without perforation or abscess without bleeding; G40.909 Epilepsy, unspecified, not intractable, without status epilepticus; R13.10 Dysphagia, unspecified; Z66 Do not resuscitate; R32 Unspecified urinary incontinence; K21.9 Gastro-esophageal reflux disease without esophagitis; H91.93 Unspecified hearing loss, bilateral; E78.5 Hyperlipidemia, unspecified; E78.00 Pure hypercholesterolemia, unspecified; B02.9 Zoster without complications; E03.9 Hypothyroidism, unspecified; F03.90 Unspecified dementia, unspecified severity, without behavioral disturbance, psychotic disturbance, mood disturbance, and anxiety; Z98.49 Cataract extraction status, unspecified eye; J84.10 Pulmonary fibrosis, unspecified; Z87.01 Personal history of pneumonia (recurrent); Z87.891 Personal history of nicotine dependence; Z96.642 Presence of left artificial hip joint; Z90.49 Acquired absence of other specified parts of digestive tract; D64.9 Anemia, unspecified; K52.9 Noninfective gastroenteritis and colitis, unspecified; Z22.322 Carrier or suspected carrier of Methicillin resistant Staphylococcus aureus; S06.5X9D Traumatic subdural hemorrhage with loss of consciousness of unspecified duration, subsequent encounter
CPT/HCPCS: 36245; 51701; 70450; 71250; 74018; 76937; 82271; 82805; 83036; 83735; 84100; 87040; 87081; 87086; 87324; 87449; 94640; 94669; 94799; 96365; 96372; 99285; C9113; J0712; J1644; J2060; J2270; J2704; J3490; J7030; J7060